=== PATIENT | male | born 1950 | race Caucasian/White ===

== ENCOUNTER 2016-12-14 09:57 | Day surgery (SDC) | payer OTHER ==
[2016-12-14 12:00] VITALS: BP 148/80; PULSE 71; RESP 20; TEMP 97.7; O2SAT 99
[2016-12-14] MEDS ORDERED: LIDOCAINE HCL 1% 20 ML VIAL ONE (12:03)
--- NOTE | 2016-12-14 12:08 | RADRPT ---
EXAM DATE/TIME: 12/14/2016 10:26 [facility] COMPARISON: No previous studies available for comparison. EXTERNAL COMPARISON: [facility], CT SOFT TISSUE NECK, Nov 19 2016 INDICATIONS : Right parotid gland mass. MEDICAL HISTORY : Hypercholesterolemia. Hyperlipidemia. Benign parotid mass. Polyps. SURGICAL HISTORY : Parotidectomy. ENCOUNTER: Initial ACUITY: 1 month PAIN SCORE: 2/10 LOCATION: Right neck ORGAN: Right neck SPECIMENS: Five core specimen(s) submitted for pathologic evaluation. DEVICE: 18 gauge Bio Pince needle Post procedure scanning reveals no hematoma or other complication. The possibility does exist that the tissue obtained will be non-diagnostic. If the sample is non-kat gnostic a repeat biopsy or surgical biopsy may need to be performed. TECHNIQUE: 1. Ultrasound guidance for needle biopsy. 2. Needle biopsy. The risks, benefits and alternatives to the procedure were explained and verbal and written consent w as obtained. The site was prepped in sterile fashion. Full sterile technique was used, including ca p, mask, sterile gloves and gown and a large sterile sheet. Hand hygiene and 2% chlorhexidine and/or betadine/alcohol prep was utilized per protocol for cutaneous antisepsis. The skin and subcutaneous tissues were infiltrated with local anesthetic solution. Sterile gel and sterile probe cover were u tilized for ultrasound guidance. Patient has history of parotidectomy 5 years ago. Has bilateral lymphadenopathy much larger on the right than the left in spite of the physical exam on the left. I elected to biopsy the 1 cm pathological nodes on the right with an 18 gauge coring needle. 5 sampl es were obtained and submitted for pathologic diagnosis in RPMI. . The patient tolerated the procedure well and left the ultrasound suite in stable condition. CONCLUSION: Uncomplicated ultrasound guided needle biopsy n of right neck adenopathy. Lymph nodes are suspicious for lymphoma. Samples were sent in RPMI.. Jason Barney MD FACR on December 14, 2016 at 12:05 Board Certified Radiologist. This report was verified electronically.
[2016-12-14 12:15] VITALS: BP 143/84; PULSE 75; RESP 20; O2SAT 99
== END 2016-12-14 12:25 | disposition home or self-care (01) ==
LOC: HRAD 09:57 → HRIP 10:00 → HRAD 12:25
PROVIDERS: ATTEND Otolaryngology Otolaryngology/Facial Plastic Surgery
DX: D11.0 Benign neoplasm of parotid gland (principal); R22.1 Localized swelling, mass and lump, neck; E78.5 Hyperlipidemia, unspecified
CPT/HCPCS: 42400; 76942; 88184; 88185; 88305; 88333

== ENCOUNTER → 2017-06-04 | Outpatient (CLI) | payer OTHER ==
--- NOTE | 2017-06-06 09:18 | RSPPFT ---
DATE OF PROCEDURE: 06/04/17 COMMENTS: VOLUMES DYNAMIC: FVC and FEV1 normal. FLOWS: FEV1% mildly reduced; FEF 25-75 moderately reduced. DIFFUSION: Unable to perform. IMPRESSION: Simple spirometry reveals mild to moderate obstructive but preserved lung volumes. There is no significant improvement post-bronchodilator.
== END ==
LOC: PHRSP 08:40
PROVIDERS: ATTEND Internal Medicine
DX: J44.9 Chronic obstructive pulmonary disease, unspecified (principal)
CPT/HCPCS: 94060; 94618; 94726; 94729

== ENCOUNTER 2017-07-15 07:47 | Day surgery (SDC) | payer OTHER ==
[~2017-07-15] VITALS: Ht 180.3 cm; Wt 93.2 kg
[2017-07-15 08:00] VITALS: BP 161/94; PULSE 81; RESP 20; TEMP 97.6; O2SAT 99
[2017-07-15] MEDS ORDERED: TRAZ1TAB14 PO (08:10)
[2017-07-15] MEDS ORDERED: SODIUM CHLORIDE 2 ML FLUSH BID IV FLUSH SCH (09:00)
[2017-07-15] MEDS ORDERED: SODIUM CHLORIDE 2 ML FLUSH PRN IV FLUSH (09:00)
[2017-07-15] MEDS ORDERED: SODIUM CHLOR 0.9% 1000 ML IV SCH (09:00)
[2017-07-15] MEDS ORDERED: MIDAZOLAM HCL 2 MG/2 ML VIAL ONE (09:08)
[2017-07-15] MEDS ORDERED: fentaNYL CITRATE 250 MCG/5 ML AMP ONE (09:08)
[2017-07-15 09:40] VITALS: BP 138/98; PULSE 83; RESP 16; TEMP 97.6; O2SAT 93
[2017-07-15 09:55] VITALS: BP 141/75; PULSE 71; RESP 16; O2SAT 94
[2017-07-15 10:25] VITALS: BP 117/66; PULSE 75; RESP 18; O2SAT 97
[2017-07-15 10:55] VITALS: BP 124/76; PULSE 80; RESP 18; O2SAT 95
--- NOTE | 2017-07-15 11:03 | RADRPT ---
EXAM DATE/TIME: 07/15/2017 09:05 [facility] COMPARISON: No previous studies available for comparison. INDICATIONS : Left lung biopsy SEDATION TIME: 15 minutes BIOPSY SITE: Left lung MEDICATION(S): 1.) 2 mg midazolam (Versed) IV 2.) 200 mcg fentanyl (Sublimaze) IV MEDICAL HISTORY : None. SURGICAL HISTORY : Appendectomy. Tonsillectomy. ENCOUNTER: Initial ACUITY: 1 day PAIN SCORE: 0/10 LOCATION: Left chest Prior to the procedure informed consent was obtained. Any appropriate prior imaging studies were rev iewed. Using automated exposure control and adjustment of the mA and/or kV according to patient size, radiation dose was kept as low as reasonably achievable to obtain optimal diagnostic quality images. DICOM format image data is available electronically for review and comparison. The site was prepped in a sterile fashion. Full sterile technique was used, including cap, mask, benigno rile gloves and gown and a large sterile sheet. Hand hygiene and 2% chlorhexidine and/or betadine/al cohol prep was utilized per protocol for cutaneous antisepsis. The skin and subcutaneous tissues wer e infiltrated with local anesthetic solution. Multiple attempts to be made to biopsy the small 1.4 cm PET positive nodule laterally in the left donavon g. The nodule is hidden behind rib and scapula and I was unable to obtain clear percutaneous access. Conscious sedation was performed with the prescribed dosages and duration as above in the presence of an independent trained radiology nurse to assist in the monitoring of the patient. EKG and oximetry remained stable throughout the procedure. The patient tolerated the procedure well and there were no complications. The patient was sent to Radiology Outpatient Unit in stable condition. CONCLUSION: Unable to biopsy suspicious nodule laterally left lung. Recommendations would be to repeat CT scan in 4 months. If this changes in size surgical excision may be of benefit. Patient has long smoking history but no personal history of cancer. Jason Barney MD FACR on July 15, 2017 at 10:58 Board Certified Radiologist. This report was verified electronically.
== END 2017-07-15 11:25 | disposition home or self-care (01) ==
LOC: HRIP 07:47 → HRAD 07:47
PROVIDERS: ATTEND Internal Medicine Hematology & Oncology
DX: R91.1 Solitary pulmonary nodule (principal); Z87.891 Personal history of nicotine dependence
CPT/HCPCS: 32405; 77012; 99152; J2250; J3010

== ENCOUNTER 2018-01-01 05:23 | Inpatient (IN) ==
[2018-01-01] MEDS ORDERED: Chlorhexidine Gluconate 2% 1 Pack (2 Cloths) TOPICAL ONE (06:15)
[2018-01-01] MEDS ORDERED: Metoprolol Tartrate 25 MG Tablet PO ONE (06:15)
[2018-01-01] MEDS ORDERED: Sodium Chlor 0.9% Inj 500 ML IV.CONT ONE (06:15)
[2018-01-01] MEDS ORDERED: Ketamine Inj 50 MG/5 ML Syringe IV.PUSH ONE (06:27)
[2018-01-01] MEDS ORDERED: fentaNYL Citrate Inj 250 MCG/5 ML Ampul ONE (06:45)
[2018-01-01] MEDS ORDERED: Lidocaine PF 1% Inj 5 ML Syringe OTHER ONE (07:45)
[2018-01-01] MEDS ORDERED: Sodium Chlor 0.9% Inj 20 ML, Bupivacaine Liposo PF 1.3% Inj 20 ML, Dexamethasone PF Inj... IRRIGATION ONE ×4 (07:45)
[2018-01-01] MEDS ORDERED: Normosol-R pH 7.4 Inj 2,000 ML IV.CONT ONE (07:50)
[2018-01-01] MEDS ORDERED: Phenylephrine/NS 1000 MCG/10ML Syringe IV.PUSH ONE (08:00)
[2018-01-01] MEDS ORDERED: Glycopyrrolate Inj 1 MG/5 ML Syringe IV.PUSH ONE (11:20)
[2018-01-01] MEDS ORDERED: Neostigmine Inj 5 MG/5 ML Syringe IV.PUSH ONE (11:20)
[2018-01-01] MEDS ORDERED: Post-op Orders (for Pharmacy) OTHER STA (11:38)
[2018-01-01] MEDS ORDERED: Bisacodyl 10 MG Supp RECTAL PRN (11:38)
[2018-01-01] MEDS ORDERED: Acetaminophen 325 MG Tablet PO PRN (11:38)
--- NOTE | 2018-01-01 11:48 | P.OP ---
Date of procedure: 01/01/18 Anesthesia: SOOA Surgeon: Simona Yusuf MD Operation and Findings: PREOPERATIVE DIAGNOSIS 1. Left lower lobe Lung Cancer 2. COPD POSTOPERATIVE DIAGNOSIS same PROCEDURES 1. Left posterolateral Muscle Sparing Thoracotomy 2. Left lower lobectomy 3. Left lower lobe mass wedge resection 4. Mediastinal Lymph Node Dissection 5. Cryo nerve block 6. Exparel intercostal Nerve Block SURGEON Simona Yusuf MD ASSISTANT PROFESSOR OF GERMAN GRETEL [facility] ANESTHESIA General double-lumen endotracheal. PLATE CORRECTOR YI Sy MD DRAINS [address] COUNTS Needle, sponge, and instrument counts were correct. COMPLICATIONS None. INDICATION FOR PROCEDURE The patient is a 67yo gentleman with left lung mass presenting for surgical resection of above pathology. DESCRIPTION OF PROCEDURE The patient was brought to the operating suite and placed in supine position. Following satisfactory induction of general double-lumen endotracheal anesthesia , the patient was placed in the right lateral decubitus position. The left chest and surrounding area was then prepped and draped in the usual sterile fashion. A standard muscle-sparing posterolateral thoracotomy was performed and the serratus anterior muscle spared. The pleural space was entered. Exploration of the chest revealed a mass in the superior segment of the lower lobe adjacent to the fissure. The fissure was developed and the mass isolated. Wedge resection of the mass was performed and sent for frozen section analysis. This was consistent with an adenocarcinoma. Therefore plans were made to proceed with a formal lower lobectomy. The inferior pulmonary ligament was divided. The pulmonary arterial supply to the lower lobe was identified, dissected free and divided as was the pulmonary venous supply. The bronchus was then dissected free , clamped and the remaining lung was insufflated without any difficulty. Lymph node dissections of level 5, 7, 8, 9 and 10 were performed along with the course of this removal. Some of these were retained with the specimen. Specimen was removed from the chest. The remaining lung was submerged under sterile water and inflated. No air leaks were identified. At this point the closure was undertaken. A 28-Turkmen chest tube was placed. Intercostal nerve block was performed at the level of the incision and 3 rib spaces above and below using Exparel with Decadron solution. Cryo nerve block was performed using the AtriCure Cryo-probe at the level of the incision as well as two intercostal spaces above and below]. Tissell was sprayed along the staple line. The pericostal space was approximated with interrupted #1 Vicryl sutures in a pericostal fashion. The serratus fascia and Latissimus dorsi were closed with running 0-Vicryl and the remaining wounds closed with 3-0, and 4-0 Monocryl. The patient tolerated the procedure well and postoperatively went to the PACU in stable condition.
[2018-01-01] MEDS ORDERED: Labetalol HCl Inj 100 MG/20 ML Vial IV.PUSH ONE (12:12)
[2018-01-01] MEDS ORDERED: fentaNYL Citrate Inj 100 MCG/2 ML Ampul ONE (12:18)
[2018-01-01] MEDS ORDERED: Labetalol HCl Inj 100 MG/20 ML Vial ONE (12:21)
--- NOTE | 2018-01-01 13:23 | XR ---
EXAM DATE: 01/01/2018 11:38 AM EDT AGE/SEX: 67 years / Male INDICATIONS: Post thoracotomy. CLINICAL DATA: This is the patient's initial encounter. Patient reports that signs and symptoms have been present for 1 day and indicates a pain score of Nonresponsive. MEDICAL/SURGICAL HISTORY: None. . Appendectomy. Tonsillectomy. COMPARISON: [facility] – [place]ST 2V PA&LAT, 12/30/2017. . FINDINGS: Left apical chest tube in place. Subcutaneous TACE emphysema with volume loss in the left lung but no significant pneumothorax. Redemonstration of masses in the lower lung zones bilaterally. There is pr ominence of the mediastinum which may be due to technique. Cardiac silhouette is within normal limits . Mild subcutaneous emphysema along the left chest wall extending to the lower cervical soft tissues. Remainder of the exam is unchanged. CONCLUSION: 1. Expected postoperative features of thoracotomy with left apical chest tube in place. No pneumotho rax. 2. Redemonstration of masses in the lower lobes bilaterally. Electronically signed by: Alin Padilla MD 01/01/2018 1:21 PM EDT
--- NOTE | 2018-01-01 14:26 | P.PNCV ---
- Note Subjective/Hospital Course: 67 male/ seen initially in office by Dr Yusuf , for bilateral lung nodules. Workup included chest CT Needle BX( unsuccessful due to location of lesion) , PET scan. Left sided lesion PET-positive. Right lubg non-PET positive lesions x 2 Discussion of surgical resection was discussed, but placed on hold due to diffuse rash and pruritus, which is now improved following steroid therapy. 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 Left lower lobe Lung Cancer 2. COPD POSTOPERATIVE DIAGNOSIS same PROCEDURES 1. Left posterolateral Muscle Sparing Thoracotomy 2. Left lower lobectomy 3. Left lower lobe mass wedge resection 4. Mediastinal Lymph Node Dissection 5. Cryo nerve block 6. Exparel intercostal Nerve Block Objective: Vital Signs - 24 hr 01/01/18 06:15 Temperature 97.4 F L Pulse Rate 84 Respiratory Rate 20 Blood Pressure 186/89 H Pulse Oximetry 98 Labs: Laboratory Results - last 12 hr 01/01/18 06:54 MTS Gel Crossmatch See Detail
--- NOTE | 2018-01-01 14:28 | P.DCO ---
- Home Health Nursing Order: Medical education, Signs/symptoms of disease process, Wound care and dressing changes, Nursing assessment with vital signs - Home Health Aide Instructions: Incentive spirometry Q1 hr x 10, while awake, also use acapella device hourly whole Chest wall precautions: NO pushing or pulling, ( pt must use chest pillow support chest with all activities and with coughing Daily incision care: ok to shower ( 48hrs after chest tube removed) and then daily, no tub bath. Wash all incisions with liquid dial soap, clean wash cloth to each site, rinse and pat dry. Observe for any signs of infection, such as drainage which is dark yellow, robert, green or foul smelling. Immediately report to the surgeon any drainage from the chest incision, or legs, and for any abnormal drainage from the chest tube sites. Notify surgeon if any temp > 101.5 degrees F. When specialty dressing removed/ or if you do not have one, continue to shower daily as above, then rinse and pat incision dry and paint with betadine daily x 5 days. Allow steri strips to fall off if you have any. Avoid lotions, creams, salves, oils, etc. for the first month For Dr. Feliciano patients , please obtain PA & Lat CXR in 2 weeks, results to Dr. Feliciano ( prescription will be given) ( ) (Tele: [phone]) , F/U appointment: as per NH instructions: PCP in 2 weeks, CV surgeon 2 weeks, Hospice Home Care Coordinator 3-4 weeks For any questions regarding incisions/ dressing / meds / post op care or above Symptoms, Saturday 8am-5pm Heart & Vascular Surgery Office ( Dr. Yusuf & Dr. Feliciano), After Hours / Nights (5pm -8am) Weekends and Holidays Please call [facility] Cardiac Intermediate Care Unit (CIC) Charge Nurse - Case Management Consult Yes - Certification I have seen patient Obed Yang on 01/01/18. My clinical findings support the need for the requested home health care services because: Deconditioned with increased weakness I certify that my clinical findings support that this patient is homebound because: Post-op weakness
[2018-01-01] MEDS: Ketorolac Inj 30 MG/ML (IVP) Vial IV.PUSH SCH ×2 (14:35→21:47)
[2018-01-01] MEDS: traZODone 50 MG Tablet PO SCH (21:46)
[2018-01-01] MEDS: Senna/Docusate Sodium 8.6/50 MG Tablet PO SCH (21:46)
[2018-01-02] MEDS: Ketorolac Inj 30 MG/ML (IVP) Vial IV.PUSH SCH ×2 (02:07→06:09)
[2018-01-02 05:00] LABS: Baso % (Auto) 0.1 % (0.0-2.0); Eos % (Auto) 0.1 % (0.0-4.0); Lymph # (Auto) 1.2 th/mm3 (1.0-4.8); Lymph % (Auto) 12.2 % (9.0-44.0); Mean Corpuscular Hemoglobin 30.7 pg (27.0-34.0); Mean Corpuscular Volume 90.2 fL (80.0-100.0); Mean Platelet Volume 9.5 fL (7.0-11.0); Mono % (Auto) 10.5 % (0.0-8.0); Neut # (Auto) 7.5 th/mm3 (1.8-7.7); Neut % (Auto) 77.1 % (16.0-70.0); Platelet Count 156 th/mm3 (150-450); Red Blood Count 5.54 mil/mm3 (4.50-5.90); Red Cell Distribution Width 13.6 % (11.6-17.2); White Blood Count 9.8 th/mm3 (4.0-11.0)
--- NOTE | 2018-01-02 05:00 | XR ---
EXAM DATE: 01/02/2018 11:38 AM EDT AGE/SEX: 67 years / Male INDICATIONS: Shortness of breath, possible pneumothorax. CLINICAL DATA: This is the patient's subsequent encounter. Patient reports that signs and symptoms h ave been present for 2 days and indicates a pain score of 7/10. MEDICAL/SURGICAL HISTORY: None. Appendectomy. Tonsillectomy. Lobectomy. [place] [facility] [place] S[place]LE [place]. . FINDINGS: Single AP view the chest. Persistent cardiac silhouette enlargement. Left-sided chest tube remains in place. Subcutaneous emphysema again seen on the left. No evidence of pneumothorax. Bilateral lower l husam zone masses unchanged. No evidence of pleural effusion. CONCLUSION: No significant interval change. Electronically signed by: Clayton Brannon MD 01/02/2018 4:59 AM EDT
[2018-01-02 05:27] LABS: Calcium 9.1 mg/dL (8.5-10.1); Carbon Dioxide 26.7 meq/L (21.0-32.0)
[2018-01-02] MEDS: Senna/Docusate Sodium 8.6/50 MG Tablet PO SCH ×2 (08:28→20:54)
--- NOTE | 2018-01-02 10:25 | P.PNCV ---
- Note Subjective/Hospital Course: 67 male/ seen initially in office by Dr Yusuf , for bilateral lung nodules. Workup included chest CT Needle BX( unsuccessful due to location of lesion) , PET scan. Left sided lesion PET-positive. Right lubg non-PET positive lesions x 2 Discussion of surgical resection was discussed, but placed on hold due to diffuse rash and pruritus, which is now improved following steroid therapy. 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 Left lower lobe Lung Cancer 2. COPD POSTOPERATIVE DIAGNOSIS same PROCEDURES 1. Left posterolateral Muscle Sparing Thoracotomy 2. Left lower lobectomy 3. Left lower lobe mass wedge resection 4. Mediastinal Lymph Node Dissection 5. Cryo nerve block 6. Exparel intercostal Nerve Block 01/02 chest tube drained 150cc/ 12 hrs, no air leak pain controlled path pending BP elevated , will add BB Objective: Vital Signs - 24 hr 01/01/18 12:04 01/01/18 12:08 01/01/18 12:15 Temperature 98.2 F Pulse Rate 98 H 92 H 81 Respiratory Rate 22 22 22 Blood Pressure 194/94 H 206/98 H 168/74 H Pulse Oximetry 94 L 93 L 93 L 01/01/18 12:20 01/01/18 12:30 01/01/18 12:45 Temperature Pulse Rate 92 H 92 H 79 Respiratory Rate 19 19 21 Blood Pressure 181/83 H 162/80 H 146/68 H Pulse Oximetry 95 97 97 01/01/18 13:00 01/01/18 13:15 01/01/18 14:47 Temperature 98.0 F 97.7 F Pulse Rate 79 85 Respiratory Rate 19 Blood Pressure 169/81 H 165/66 H Pulse Oximetry 99 99 97 01/01/18 15:27 01/01/18 15:57 01/01/18 16:14 Temperature 97.9 F Pulse Rate 87 Respiratory Rate 16 16 Blood Pressure 165/66 H Pulse Oximetry 97 97 01/01/18 19:27 01/01/18 20:00 01/01/18 20:16 Temperature 97.6 F Pulse Rate 101 H 104 H Respiratory Rate 18 Blood Pressure 164/81 H Pulse Oximetry 98 98 01/01/18 22:35 01/01/18 23:00 01/01/18 23:04 Temperature Pulse Rate 104 H Respiratory Rate 18 18 Blood Pressure Pulse Oximetry 01/02/18 00:00 01/02/18 01:00 01/02/18 02:09 Temperature 98.1 F Pulse Rate 101 H 110 H 111 H Respiratory Rate 20 Blood Pressure 164/86 H Pulse Oximetry 96 01/02/18 02:39 01/02/18 03:00 01/02/18 03:20 Temperature Pulse Rate 107 H 107 H Respiratory Rate 18 Blood Pressure Pulse Oximetry 01/02/18 03:37 01/02/18 04:00 01/02/18 04:05 Temperature 99 F Pulse Rate 110 H 103 H 105 H Respiratory Rate 20 22 Blood Pressure 151/83 H Pulse Oximetry 96 01/02/18 05:00 01/02/18 06:00 01/02/18 06:45 Temperature Pulse Rate 104 H 101 H Respiratory Rate 18 Blood Pressure Pulse Oximetry 01/02/18 07:58 Temperature Pulse Rate 104 H Respiratory Rate Blood Pressure Pulse Oximetry GENERAL: A&O x 3 SKIN: Warm and dry. incision intact and well approximated to left posterior chest wall HEAD: Normocephalic. EYES: No scleral icterus. No injection or drainage. NECK: Supple, trachea midline. No JVD or lymphadenopathy. CARDIOVASCULAR: Regular rate and rhythm without murmurs, gallops, or rubs. RESPIRATORY: Breath sounds equal bilaterally. No accessory muscle use. chest tube to wall suction, no air leak GASTROINTESTINAL: Abdomen soft, non-tender, nondistended. MUSCULOSKELETAL: No cyanosis, or edema. BACK: Nontender without obvious deformity. No CVA tenderness. Labs: Laboratory Results - last 12 hr 01/02/18 01/02/18 03:57 03:57 WBC 9.8 RBC 5.54 Hgb 17.0 Hct 50.0 MCV 90.2 MCH 30.7 MCHC 34.0 RDW 13.6 Plt Count 156 MPV 9.5 Neut % (Auto) 77.1 H Lymph % (Auto) 12.2 [place] % (Auto) 10.5 H Eos % (Auto) 0.1 Baso % (Auto) 0.1 Neut # (Auto) 7.5 Lymph # (Auto) 1.2 [place] # (Auto) 1.0 H Eos # (Auto) 0.0 Baso # (Auto) 0.0 WBC Differential . Differential Comment Auto diff final Sodium 137 Potassium 4.0 Chloride 100 Carbon Dioxide 26.7 Anion Gap 10 BUN 27 H Creatinine 1.24 Estimated GFR 58 L Random Glucose 116 H Calcium 9.1 Result Diagrams: 01/02/18 03:57 01/02/18 03:57 Telemetry: NSR - Plan (3) Nicotine abuse Plan: smoking cessation (4) S/P thoracotomy Plan: pulm toileting nebs ezpap leave chest tube in eval for HHC at discharge path pending
[2018-01-02] MEDS: Metoprolol Tartrate 25 MG Tablet PO SCH ×2 (11:33→20:54)
[2018-01-02] MEDS: traZODone 50 MG Tablet PO SCH (20:54)
[2018-01-03] MEDS: Senna/Docusate Sodium 8.6/50 MG Tablet PO SCH (09:03)
[2018-01-03] MEDS: Metoprolol Tartrate 25 MG Tablet PO SCH (09:03)
--- NOTE | 2018-01-03 10:50 | P.DS ---
Date of admission: 01/01/18 05:23 Primary care physician: Uday Dumont Attending physician on discharge: Simona Yusuf Anticipated date of discharge: 01/03/18 Brief History from admission: 67 male/ seen initially in office by Dr Yusuf , for bilateral lung nodules. Workup included chest CT Needle BX( unsuccessful due to location of lesion) , PET scan. Left sided lesion PET-positive. Right lubg non-PET positive lesions x 2 Discussion of surgical resection was discussed, but placed on hold due to diffuse rash and pruritus, which is now improved following steroid therapy. 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/ also resection of contralateral lymph node, chronic nicotine use Patient update on day of discharge: pt doing well, on room air path still pending chest tube with no air leak dc without difficultly, no subq emphysema noted check CXR at 11:30 if stable , will dc home today DS: Diagnosis - Discharge Diagnosis (1) Lung cancer Status: Acute (2) COPD (chronic obstructive pulmonary disease) Status: Chronic (3) Nicotine abuse Status: Chronic (4) S/P thoracotomy Status: Acute DS: Medications - Discharge Medications Prescriptions: hydrocodone-acetaminophen 1 tab PO Q4H PRN #30 tab PRN Reason: Pain Scale 3 To 5 metoprolol tartrate 25 mg PO BID #60 tab sennosides [Senna Lax] 17.2 mg PO Q12H PRN #60 tab PRN Reason: Moderate Constipation DS: Summary Hospital Course: 01/01 pt electively admitted for surgery surgery: PREOPERATIVE DIAGNOSIS 1. Left lower lobe Lung Cancer 2. COPD POSTOPERATIVE DIAGNOSIS same PROCEDURES 1. Left posterolateral Muscle Sparing Thoracotomy 2. Left lower lobectomy 3. Left lower lobe mass wedge resection 4. Mediastinal Lymph Node Dissection 5. Cryo nerve block 6. Exparel intercostal Nerve Block 01/02 chest tube drained 150cc/ 12 hrs, no air leak pain controlled path pending BP elevated , will add BB 01/03 chest tube removed without difficulty await post cxr if stable then dc home today will discuss path at f/u office visit - Time Spent with Patient Total time spent providing and/or coordinating discharge services: Greater than 30 minutes - Quality: VTE Deep Vein Thrombosis/Pulmonary Embolism Present on Admission: No Exam Vital signs: Vital Signs 01/02/18 11:00 01/02/18 12:00 01/02/18 13:00 Temperature 98.1 F Pulse Rate 100 H 100 H 86 Respiratory Rate 16 Blood Pressure 139/73 Pulse Oximetry 97 01/02/18 14:00 01/02/18 15:00 01/02/18 16:00 Temperature 97.8 F Pulse Rate 85 94 H 88 Respiratory Rate 14 Blood Pressure 129/73 Pulse Oximetry 96 01/02/18 16:34 01/02/18 17:00 01/02/18 17:54 Temperature Pulse Rate 85 97 H 98 H Respiratory Rate 15 Blood Pressure Pulse Oximetry 01/02/18 19:00 01/02/18 19:57 01/02/18 20:00 Temperature Pulse Rate 94 H 93 H 101 H Respiratory Rate 20 Blood Pressure 133/80 Pulse Oximetry 97 01/02/18 20:42 01/02/18 21:00 01/02/18 22:00 Temperature Pulse Rate 78 100 H 101 H Respiratory Rate 16 Blood Pressure Pulse Oximetry 94 L 01/02/18 23:00 01/03/18 00:00 01/03/18 01:00 Temperature 98.2 F Pulse Rate 94 H 102 H 102 H Respiratory Rate 20 Blood Pressure 146/84 H Pulse Oximetry 97 01/03/18 02:00 01/03/18 03:00 01/03/18 04:00 Temperature 98.1 F Pulse Rate 95 H 99 H 96 H Respiratory Rate 20 Blood Pressure 153/83 H Pulse Oximetry 97 01/03/18 05:00 01/03/18 06:00 01/03/18 07:29 Temperature 98.3 F Pulse Rate 105 H 92 H 99 H Respiratory Rate 17 Blood Pressure 173/87 H Pulse Oximetry 96 Intake & Output 01/02/18 01/03/18 01/03/18 18:59 06:59 18:59 Intake Total 910 / 910 480 / 480 Output Total 495 / 495 1055 / 1055 Balance 415 / 415 -575 / -575 Weight 90 kg Intake: IV 100 / 100 Ancef Inj 1,000 MG In NS Inj 100 / 100 100 ML @ 200 mls/hr IV.SIG Q8H [facility] Rx#:[id number] Oral 810 / 810 480 / 480 Output: Urine 425 / 425 1000 / 1000 Chest Tube Drainage 70 / 70 55 / 55 Left Pleural 70 / 70 55 / 55 - Constitutional no acute distress - Routine HEENT Exam Head: Present: normocephalic, atraumatic Eye: Present: EOMI, PERRL, normal accommodation - Routine Neck Exam Present: supple, full ROM - Routine Chest/Breast/Axilla Exam Chest wall: Present: tenderness - Routine Respiratory Exam Present: CTA bilaterally - Routine Cardiovascular Exam Present: RRR, S1, S2 - Routine Abdominal Exam Present: soft, normoactive bowel sounds - Routine Extremities Exam Present: full ROM, pulses intact, normal capillary refill - Routine Skin Exam Present: wounds Comments: incision intact to right posterior chest wall dressing over chest tube site - Routine Neurological Exam Present: alert, oriented X3, CN II-XII intact Results Procedures completed during hospitalization: 01/01 PREOPERATIVE DIAGNOSIS 1. Left lower lobe Lung Cancer 2. COPD POSTOPERATIVE DIAGNOSIS same PROCEDURES 1. Left posterolateral Muscle Sparing Thoracotomy 2. Left lower lobectomy 3. Left lower lobe mass wedge resection 4. Mediastinal Lymph Node Dissection 5. Cryo nerve block 6. Exparel intercostal Nerve Block Labs on day of discharge: Labs from last 24 hours 01/01/18 06:54 MTS Gel Crossmatch See Detail - Impressions ITS Impressions Chest X-Ray 01/02/18 11:38 CONCLUSION: No significant interval change. Discharge Plan - Discharge Disposition Patient Disposition: W/Home Health Service - Discharge Condition Condition: Good - Discharge Details Anticipated Discharge Date: 01/03/18 Discharge Comment: after CXR resulted and stable - Physicians Team Attending Provider: Simona Yusuf Other Providers: [employer] [facility] ; [employer] - Rxs /Orders / Referrals /Forms Prescriptions: New hydrocodone-acetaminophen 5-325 mg Tablet 1 tab PO Q4H PRN (Reason: Pain Scale 3 To 5) Qty: 30 RF: 0 metoprolol tartrate 25 mg Tablet 25 mg PO BID Qty: 60 RF: 2 sennosides [Senna Lax] 8.6 mg Tablet 17.2 mg PO Q12H PRN (Reason: Moderate Constipation) Qty: 60 RF: 0 Continue trazodone 150 mg Tablet 150 mg PO HS Referrals: Reagan Garner MD [INTERNAL MEDICINE] - See Instructions ( Your appointment has been scheduled for [01/10/18] at [2:40 pm] If you cannot make this appointment, please call the office to reschedule ) Rosmery Mei [[facility] RN PRACTITIONER] - See Instructions ( Your appointment has been scheduled for [01/21/18] at [11:00 am] If you cannot make this appointment, please call the office to reschedule ) Aguila Bowman MD [Physician] - See Instructions ( Your appointment has been scheduled for [01/30/18] at [1:00 pm] If you cannot make this appointment, please call the office to reschedule ) - Discharge Instructions Additional Instructions: Incentive spirometry Q1 hr x 10, while awake, also use acapella device hourly whole Chest wall precautions: NO pushing or pulling, ( pt must use chest pillow support chest with all activities and with coughing Daily incision care: ok to shower ( 48hrs after chest tube removed) and then daily, no tub bath. Wash all incisions with liquid dial soap, clean wash cloth to each site, rinse and pat dry. Observe for any signs of infection, such as drainage which is dark yellow, robert, green or foul smelling. Immediately report to the surgeon any drainage from the chest incision, or legs, and for any abnormal drainage from the chest tube sites. Notify surgeon if any temp > 101.5 degrees F. When specialty dressing removed/ or if you do not have one, continue to shower daily as above, then rinse and pat incision dry and paint with betadine daily x 5 days. Allow steri strips to fall off if you have any. Avoid lotions, creams, salves, oils, etc. for the first month For Dr. Feliciano patients , please obtain PA & Lat CXR in 2 weeks, results to Dr. Feliciano ( prescription will be given) ( ) (Tele: ) , F/U appointment: as per DC instructions: PCP in 2 weeks, CV surgeon 2 weeks, Referral Specialist 3-4 weeks For any questions regarding incisions/ dressing / meds / post op care or above Symptoms, Saturday 8am-5pm Heart & Vascular Surgery Office ( Dr. Yusuf & Dr. Feliciano), After Hours / Nights (5pm -8am) Weekends and Holidays Please call [facility] Card[facility] Unit ([facility]) Charge Nurse
--- NOTE | 2018-01-03 12:26 | XR ---
EXAM DATE: 01/03/2018 11:30 AM EDT AGE/SEX: 67 years / Male INDICATIONS: Post chest tube removal. Patient states slight shortness of breath. CLINICAL DATA: This is the patient's initial encounter. Patient reports that signs and symptoms have been present for 3 days and indicates a pain score of 0/10. MEDICAL/SURGICAL HISTORY: None. Appendectomy. Tonsillectomy. COMPARISON: [facility] – [place]ST 1V SINGLE AP, 01/02/2018. . FINDINGS: Persistent elevation of the left hemidiaphragm. Small left apical pneumothorax following removal of l eft-sided chest tube. Persistent trace left-sided subcutis emphysema. Redemonstration of right lower lobe lung mass with associated linear airspace disease at the lung base. Cardiomegaly saw contours ar e stable. Remainder of exam is unchanged. CONCLUSION: 1. Small left apical pneumothorax following chest tube removal. Electronically signed by: Alin Padilla MD 01/03/2018 12:25 PM EDT
[2018-01-03 13:18] VITALS: BP 136/78; TEMP 98.2; O2SAT 97
[2018-01-03 15:20] VITALS: PULSE 100; RESP 18
== END 2018-01-03 16:30 | disposition home health service (06) ==
LOC: HSDI 05:23 → HCPC 13:22
PROVIDERS: ADMIT Thoracic Surgery (Cardiothoracic Vascular Surgery); ATTEND Thoracic Surgery (Cardiothoracic Vascular Surgery)